=== PATIENT | female | born 1960 | race Caucasian/White ===

== ENCOUNTER 2019-02-09 11:55 | Emergency (ER) | payer OTHER ==
[~2019-02-09] VITALS: Ht 160 cm; Wt 90.7 kg
[2019-02-09] MEDS ORDERED: ATENOLOL25 MG (12:08)
== END 2019-02-09 21:04 | disposition home or self-care (01) ==
LOC: ER 11:55
DX: R10.84 Generalized abdominal pain (principal); R19.7 Diarrhea, unspecified